=== PATIENT | female | born 1970 | race Two or more races ===

== ENCOUNTER 2024-02-21 01:16 | Emergency (ER) | payer MEDICAID, OTHER ==
[~2024-02-21] VITALS: Ht 167.6 cm; Wt 63.5 kg
[2024-02-21 01:18] VITALS: BP 202/112; RESP 18; O2SAT 97
[2024-02-21 01:24] VITALS: PULSE 81
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
[2024-02-21 02:07] LABS: Basophils # (auto) 0.1 10 ^3/uL (0-0.2); Basophils % (auto) 0.5 % (0.0-2.0); Eosinophils # (auto) 0.2 10 ^3/uL (0-0.8); Eosinophils % (auto) 1.1 % (0.0-7.0); Hematocrit 52.5 % (36.0-46.0); Hemoglobin 17.8 g/dL (12.2-16.2); Lymphocytes # (auto) 3.7 10 ^3/uL (0.4-5.4); Lymphocytes % (auto) 22.8 % (10.0-50.0); Mean Corpuscular Hemoglobin 33.1 pg (28.0-32.0); Mean Corpuscular Hgb Conc. 33.8 g/dL (32.0-36.0); Mean Corpuscular Volume 97.9 fL (80.0-100.0); Monocytes # (auto) 0.8 10 ^3/uL (0-1.3); Monocytes % (auto) 4.8 % (0.0-12.0); Neutrophils # (auto) 11.6 10 ^3/uL (1.6-8.6); Neutrophils % (auto) 70.8 % (37.0-80.0); Nucleated Red Blood Cells % 0.1 %; Platelet Count (auto) 298 10^3/uL (140-450); Potassium 3.6 mmol/L (3.5-5.1); Red Blood Cells 5.37 10^6/uL (4.0-5.20); Red Cell Distribution Width 15.2 % (11.8-14.3); Sodium 143 mmol/L (136-145); White Blood Cell 16.4 10^3/uL (4.4-10.8)
[2024-02-21 02:08] LABS: Anion Gap 7 (5-15); Carbon Dioxide 27 mmol/L (20-31)
[2024-02-21 02:13] LABS: BUN/Creatinine Ratio 7.9 (10.0-20.0)
[2024-02-21 02:16] LABS: Blood Urea Nitrogen 7 mg/dL (9-23); Calcium 10.6 mg/dL (8.7-10.4); Chloride 109 mmol/L (98-107); Glucose 152 mg/dL (74-106)
--- NOTE | 2024-02-21 06:43 | ECG ---
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
== END 2024-02-21 02:26 | disposition left against medical advice (07) ==
LOC: ER 01:16
DX: S20.212A Contusion of left front wall of thorax, initial encounter (principal); R07.9 Chest pain, unspecified; I25.10 Atherosclerotic heart disease of native coronary artery without angina pectoris; I10 Essential (primary) hypertension; I25.2 Old myocardial infarction; E11.9 Type 2 diabetes mellitus without complications; E78.5 Hyperlipidemia, unspecified; Z90.710 Acquired absence of both cervix and uterus; V43.53XA Car driver injured in collision with pick-up truck in traffic accident, initial encounter; Y93.89 Activity, other specified; Y92.410 Unspecified street and highway as the place of occurrence of the external cause; Y99.8 Other external cause status
CPT/HCPCS: 36415; 80048; 80320; 82947; 83880; 84484; 85025; 93005